=== PATIENT | male | born 1970 | race Hispanic/Latino ===

== ENCOUNTER 2018-04-23 23:21 | Emergency (ER) | payer BC ==
[2018-04-23] MEDS ORDERED: NA CHLORIDE 0.9% 1,000 ML IV ONE (23:22)
[2018-04-23] MEDS ORDERED: ATROPINE SULF 1 MG/10 ML SYR IV ONE (23:22)
[2018-04-23] MEDS ORDERED: EPINEPHrine 1 MG/10 ML SYR IV ONE (23:22)
[2018-04-23] MEDS ORDERED: DOPAMINE/D5W 400 MG/250 ML BAG IV ONE (23:36)
--- NOTE | 2018-04-24 01:46 | ER ---
Nurse's Notes [facility] Name: Diaz Kyle Age: 47 yrs Sex: Male : 1970 Arrival Date: 04/23/2018 Time: 23:29 Bed 4 Private MD: Diagnosis: Cardiac arrest Presentation: 04/23 23:18 Presenting complaint: EMS states: that they were toned for unresponsive pt. They were fc told pt went to bed at 2130 and he then at some point became unresponsive and not breathing. Upon their arrival pt was in Vfib then went into Asystole. Care prior to arrival: Assisted ventilation, Oral intubation, CPR via thumper and is still in progress Medication(s) given: Epi x 5, Na Bicarb x 1 IV initiated. 18 GA, in the left antecubital area, Glucose check: 541 Oxygen administered. via AMBU bag Size 8 ETT, 22 at the teeth. Compressions began prior to arrival. 23:18 Method Of Arrival: EMS: [facility] 23:18 Acuity: PETRA 1 23:18 Transition of care: patient was not received from another setting of care. Onset of symptoms was April 23, 2018. Risk Assessment: Do you want to hurt yourself or someone else? Patient reports no desire to harm self or others. Initial Sepsis Screen: Does the patient meet any 2 criteria? Systolic BP < 90 mmHg. Mean Arterial Pressure (MAP) < 65. Does the patient have a suspected source of infection? No. Patient's initial sepsis screen is negative. Historical: - Allergies: 04/24 00:09 No Known Allergies; fc - Home Meds: 00:09 Unable to obtain [Active]; fc - PMHx: 00:09 CAD; fc - PSHx: 04/23 23:18 CABG; fc - Immunization history:: Last tetanus immunization: unknown. - Social history:: Smoking status: unknown. - Ebola Screening: : Unable to complete screening because patient is unresponsive, patient is intubated. Assessment: 23:20 General: Appears CPR. Behavior is unresponsive. Pain: Unable to use pain scale. Patient ao is unresponsive. CPR. Neuro: Level of Consciousness is unresponsive, CPR in progress. Cardiovascular: CPR, No pulse.. Respiratory: Airway via oral intubation. GI: Abdomen is distended, obese. EENT:. Derm: Skin with poor turgor Skin is pale. 04/24 01:43 Reassessment: Body release to home. See Paper chart. ao 01:44 CPR assessment: unresponsive. Cardiac rhythm is asystole. ao Vital Signs: 04/23 23:19 Pulse 0; Temp 99.0(R); fc 23:29 BP 79 / 45; Pulse 97; Resp 22; Pulse Ox 90% on ETT ambu; fc 23:42 BP 82 / 60; Pulse 98; Pulse Ox 85% on ETT ambu; fc ED Course: 23:18 Maintain EMS IV. Dressing intact. Good blood return noted. Site clean \T\ dry. Gauge \T\ fc site: 18 gauge to left a/c. 23:18 Arm band placed on Patient placed in an exam room, on a stretcher, on oxygen, on fc jamb cutter, on pulse oximetry. 23:25 Garland cath inserted, using sterile technique, 16 Fr., by unix systems administrator, balloon inflated, to fc gravity drainage. 23:29 Patient arrived in ED. 23:32 Inserted saline lock: 20 gauge in right antecubital area, using aseptic technique. fc ,using aseptic technique. per Mo LOU. 23:44 EKG done, by ED staff, reviewed by Norberto Montoya MD. fc 23:45 EKG done, by ED staff, reviewed by Norberto Montoya MD. 23:57 Norberto Montoya MD is Attending Physician. 23:58 Norberto Montoya MD is Pronouncing Provider. 04/24 00:02 Triage completed. fc Administered Medications: 04/23 23:19 Drug: EPINEPHrine 0.1mg/mL 1:10,000 1 mg {Note: per Mo RN.} Route: IVP; Site: left fc antecubital; 23:21 Drug: Sodium Bicarbonate 1 amp {Note: per Mo RN.} Route: IVP; Site: left antecubital; 23:21 Drug: EPINEPHrine 0.1mg/mL 1:10,000 1 mg {Note: per Mo RN.} Route: IVP; Site: left fc antecubital; 23:23 Drug: EPINEPHrine 0.1mg/mL 1:10,000 1 mg {Note: per Mo RN.} Route: IVP; Site: left fc antecubital; 23:23 Drug: Sodium Bicarbonate 1 amp {Note: per Mo RN.} Route: IVP; Site: left antecubital; fc 23:26 Drug: Atropine 1 mg {Note: per Mo RN .} Route: IVP; Site: left antecubital; fc 23:30 Drug: EPINEPHrine 0.1mg/mL 1:10,000 1 mg {Note: per Mo RN.} Route: IVP; Site: right fc antecubital; 23:30 Drug: NS 0.9% 1000 ml {Note: per Mo RN.} Route: IV; Rate: 1 bolus; Site: left fc antecubital; 23:34 Drug: EPINEPHrine 0.1mg/mL 1:10,000 1 mg {Note: per Verenice RN.} Route: IVP; Site: right fc antecubital; 23:36 Drug: Sodium Bicarbonate 1 amp {Note: per Verenice RN.} Route: IVP; Site: right fc antecubital; 23:36 Drug: Dopamine drip 5 mcg/kg/min - (DOPamine 400 mg, D5W 250 ml) {Note: started at 20 fc mcg/kg/min per Mo RN per order of Dr Montoya .} Route: IV; Rate: calculated rate; Site: left antecubital; 23:40 Drug: EPINEPHrine 0.1mg/mL 1:10,000 1 mg {Note: per Verenice RN.} Route: IVP; Site: right fc antecubital; 23:48 Drug: EPINEPHrine 0.1mg/mL 1:10,000 1 mg {Note: per Verenice RN.} Route: IVP; Site: right fc antecubital; Point of Care Testing: Blood Glucose: 23:19 Blood Glucose: High (>450 mg/dL); Ranges: Outcome: 04/24 01:44 Condition: ao 01:44 Patient : Time of 23:53 Pronounced by Norberto Montoya MD Body to ao home. 01:45 Patient left the ED. ao 02:37 Patient left the ED. fc Signatures: Carolina Joe RN DASHA Mo Peterson RN RN ao Starr, Gregory, MD MD
--- NOTE | 2018-04-24 19:26 | EKG ---
Test Date: 2018-04-23 Test Time: 23:45:53 Resin Remover: CARLITA MEASUREMENT RESULTS: Intervals: Rate: 146 MI: QRSD: 88 QT: 360 QTc: 561 [place]: P: MI: QRS: 52 T: 155 INTERPRETIVE STATEMENTS: vt Low voltage QRS Posterior infarct, possibly acute Inferior injury pattern ACUTE VT Consider right ventricular involvement in acute inferior infarct Abnormal ECG Compared to ECG 04/23/2018 23:44:06 Low QRS voltage now present Myocardial infarct finding still present Electronically Signed On 04-24-18 19:23:50 CDT by Jl Sykes
--- NOTE | 2018-04-24 19:26 | EKG ---
Test Date: 2018-04-23 Test Time: 23:44:06 Senior Account Executive: CARLITA MEASUREMENT RESULTS: Intervals: Rate: 126 UT: QRSD: 162 QT: 342 QTc: 495 [place]: P: UT: QRS: 131 T: 265 INTERPRETIVE STATEMENTS: Suspect arm lead reversal, interpretation assumes no reversal VT Nonspecific intraventricular block Lateral infarct, age undetermined Abnormal ECG No previous ECG available for comparison Electronically Signed On 04-24-18 19:24:18 CDT by Jl Sykes
--- NOTE | 2018-04-25 02:37 | EDPHYS ---
Physician Documentation [facility] Name: Diaz Kyle Age: 47 yrs Sex: Male : 1970 Arrival Date: 04/23/2018 Time: 23:29 Bed 4 Private MD: ED Physician Norberto Montoya HPI: 04/24 03:14 This 47 yrs old Male presents to ER via EMS with complaints of CPR. gs 03:14 Preceding the arrest, the patient collapsed. The arrest occurred at home. Pre-hospital gs course: The arrest was witnessed by family. Bystanders at the scene did not perform CPR. EMS care prior to arrival: initiation of ACLS, intubation was successfully performed. The patient has not experienced similar symptoms in the past. The patient has not recently seen a physician. Historical: - Allergies: 00:09 No Known Allergies; fc - Home Meds: 00:09 Unable to obtain [Active]; fc - PMHx: 00:09 CAD; fc - PSHx: 04/23 23:18 CABG; fc - Immunization history:: Last tetanus immunization: unknown. - Social history:: Smoking status: unknown. - Ebola Screening: : Unable to complete screening because patient is unresponsive, patient is intubated. ROS: 04/24 03:14 Unable to obtain ROS due to patient distress. gs Exam: 03:14 Head/Face: Normocephalic, atraumatic. Eyes: Pupils equal round and reactive to light, gs extra-ocular motions intact. Lids and lashes normal. Conjunctiva and sclera are non-icteric and not injected. Cornea within normal limits. Periorbital areas with no swelling, redness, or edema. ENT: Nares patent. No nasal discharge, no septal abnormalities noted. Tympanic membranes are normal and external auditory canals are clear. Oropharynx with no redness, swelling, or masses, exudates, or evidence of obstruction, uvula midline. Mucous membranes moist. Neck: Trachea midline, no thyromegaly or masses palpated, and no cervical lymphadenopathy. Supple, full range of motion without nuchal rigidity, or vertebral point tenderness. No Meningismus. Chest/axilla: Normal chest wall appearance and motion. Nontender with no deformity. No lesions are appreciated. Abdomen/GI: Soft, non-tender, with normal bowel sounds. No distension or tympany. No guarding or rebound. No evidence of tenderness throughout. Back: No spinal tenderness. No costovertebral tenderness. Full range of motion. Skin: Warm, dry with normal turgor. Normal color with no rashes, no lesions, and no evidence of cellulitis. MS/ Extremity: Pulses equal, no cyanosis. Neurovascular intact. Full, normal range of motion. 03:14 Constitutional: The patient appears in obvious distress, severely distressed. 03:14 Cardiovascular: Rhythm: irregular, pea, no pulse. 03:14 Respiratory: equal bs with bvm. Vital Signs: 04/23 23:19 Pulse 0; Temp 99.0(R); fc 23:29 BP 79 / 45; Pulse 97; Resp 22; Pulse Ox 90% on ETT ambu; fc 23:42 BP 82 / 60; Pulse 98; Pulse Ox 85% on ETT ambu; fc Procedures: 04/24 03:14 Ultrasound: Type: Fast exam, performed by the emergency department physician. 03:14 Cardioversion: (unsynchronized) for treatment of V fib, with 200 joules X 1. Post gs procedure rhythm is asystole. Pacing: Patient was paced with an external pacer Using non-demand mode, Rate set at 70 in beats/min. Current set at 100 milliamps. Capture was noted. no pulse pt was in pea. MDM: 04/23 23:57 Patient medically screened. gs 04/24 03:14 Data reviewed: vital signs, nurses notes. 03:14 ED course: pulse returned but transient discussed with family efforts were futile gs ceased when asystole no cardiac activity by US. 04/24 02:36 Order name: glucometer results - FOR PT WITH NO ID 04/24 00:20 Order name: EKG; Complete Time: 00:20 ms 04/24 00:20 Order name: EKG; Complete Time: 00:20 ms 04/24 00:20 Order name: EKG - Nurse/Tech; Complete Time: 00:20 ms 04/24 00:20 Order name: EKG - Nurse/Tech; Complete Time: 00:20 ms Administered Medications: 04/23 23:19 Drug: EPINEPHrine 0.1mg/mL 1:10,000 1 mg {Note: per Mo LOU.} Route: IVP; Site: left fc antecubital; 23:21 Drug: Sodium Bicarbonate 1 amp {Note: per Mo RN.} Route: IVP; Site: left antecubital; fc 23:21 Drug: EPINEPHrine 0.1mg/mL 1:10,000 1 mg {Note: per Mo RN.} Route: IVP; Site: left fc antecubital; 23:23 Drug: EPINEPHrine 0.1mg/mL 1:10,000 1 mg {Note: per Mo RN.} Route: IVP; Site: left fc antecubital; 23:23 Drug: Sodium Bicarbonate 1 amp {Note: per Mo RN.} Route: IVP; Site: left antecubital; fc 23:26 Drug: Atropine 1 mg {Note: per Mo RN .} Route: IVP; Site: left antecubital; fc 23:30 Drug: EPINEPHrine 0.1mg/mL 1:10,000 1 mg {Note: per Mo RN.} Route: IVP; Site: right fc antecubital; 23:30 Drug: NS 0.9% 1000 ml {Note: per Mo RN.} Route: IV; Rate: 1 bolus; Site: left fc antecubital; 23:34 Drug: EPINEPHrine 0.1mg/mL 1:10,000 1 mg {Note: per Verenice RN.} Route: IVP; Site: right fc antecubital; 23:36 Drug: Sodium Bicarbonate 1 amp {Note: per Verenice RN.} Route: IVP; Site: right fc antecubital; 23:36 Drug: Dopamine drip 5 mcg/kg/min - (DOPamine 400 mg, D5W 250 ml) {Note: started at 20 fc mcg/kg/min per Mo RN per order of Dr Montoya .} Route: IV; Rate: calculated rate; Site: left antecubital; 23:40 Drug: EPINEPHrine 0.1mg/mL 1:10,000 1 mg {Note: per Verenice RN.} Route: IVP; Site: right fc antecubital; 23:48 Drug: EPINEPHrine 0.1mg/mL 1:10,000 1 mg {Note: per Verenice RN.} Route: IVP; Site: right fc antecubital; Point of Care Testing: Blood Glucose: 23:19 Blood Glucose: High (>450 mg/dL); fc Ranges: Critical Glucose Levels:Adult <50 mg/dl or >400 mg/dl <40 mg/dl or >180 mg/dl Disposition: Patient pronounced on 04/23/18 23:53 by Norberto Montoya. Impression: Cardiac arrest. - Released to Home. Signatures: Dispatcher [employer] Carolina Roque RN RN fc Solis, Maria ms Ortiz, Alex, RN RN ao Starr, Gregory, MD MD olmedo Corrections: (The following items were deleted from the chart) 04/24 01:45 04/23 23:59 04/23/2018 23:59 Patient pronounced on 04/23/2018 at 23:53 by bobo Montoya. Impression: Cardiac arrest. Released to Home. 04/24 02:37 01:45 04/23/2018 23:59 Patient pronounced on 04/23/2018 at 23:53 by Norberto Montoya. nico Impression: Cardiac arrest. Released to Home. ao
== END 2018-04-24 02:37 | disposition expired ==
LOC: ER 23:21
PROC: 5A2204Z Restoration of Cardiac Rhythm, Single (ICD-10-PCS; principal; 2018-04-24)
DX: I46.9 Cardiac arrest, cause unspecified (principal); I25.10 Atherosclerotic heart disease of native coronary artery without angina pectoris; Z95.1 Presence of aortocoronary bypass graft
CPT/HCPCS: 36415; 51702; 82962; 92950; 92953; 92960; 93005; 99291; J0171; J1265; J7030